=== PATIENT | female | born 1985 | race Caucasian/White ===

== ENCOUNTER 2017-03-25 08:22 | Emergency (ER) | payer SELFPAY ==
[2017-03-25 08:30] VITALS: BP 123/71; PULSE 87; TEMP 98.2; BMI 21.0
[2017-03-25 09:19] LABS: URINE APPEARANCE CLOUDY; URINE BILIRUBIN NEGATIVE (NEGATIVE); URINE BLOOD 3+ (NEGATIVE); URINE COLOR YELLOW; URINE GLUCOSE (UA) NEGATIVE (NEGATIVE); URINE KETONE NEGATIVE (NEGATIVE); URINE NITRITE NEGATIVE (NEGATIVE); URINE UROBILINOGEN NEGATIVE mg/dL (0.2-1.0)
--- NOTE | 2017-03-25 09:19 | PDOC ---
History of Present Illness - General Chief Complaint: Urinary Problem Stated Complaint: PAIN Time Seen by Provider: 03/25/17 08:56 History Source: Patient Exam Limitations: No Limitations - History of Present Illness Travel History: No Initial Comments: 03/25/17 09:19 31 yr female with urinary urgency and pain for 4 days. denies fever or chills no back pain or vomiting. Past History - Past Medical History Allergies/Adverse Reactions: Allergies Allergy/AdvReac Type Severity Reaction Status Date / Time No Known Allergies Allergy Verified 03/25/17 08:25 Home Medications: Ambulatory Orders Nitrofurantoin Monohyd/M-Cryst [Nitrofurantoin [place]-Mcr 100 mg] 100 mg PO BID # 14 capsule 03/25/17 Phenazopyridine HCl [Pyridium] 200 mg PO TID #6 tablet 03/25/17 Other medical history: denies. - Psycho/Social/Smoking Cessation Hx Suicidal Ideation: No Smoking History: Never smoked *Physical Exam - Vital Signs Last Vital Signs Temp Pulse Resp BP Pulse Ox 98.2 F 87 19 123/71 100 03/25/17 08:25 03/25/17 08:25 03/25/17 08:25 03/25/17 08:25 03/25/17 08:25 - Physical Exam General Appearance: Yes: Nourished, Appropriately Dressed HEENT: positive: EOMI, PATEL Neck: positive: Supple Respiratory/Chest: positive: Lungs Clear, Normal Breath Sounds Cardiovascular: positive: Regular Rhythm, Regular Rate Gastrointestinal/Abdominal: positive: Normal Bowel Sounds, Tender (suprapubic ) , Soft Musculoskeletal: positive: Normal Inspection Extremity: positive: Normal Capillary Refill, Normal Inspection, Normal Range of Motion Integumentary: positive: Normal Color, Dry, Warm Neurologic: positive: Fully Oriented, Alert, Normal Mood/Affect, Normal Response , Motor Strength 5/5 Medical Decision Making - Medical Decision Making 03/25/17 10:10 cc: urgency and urinary pain for 4 days was dx with UTI 4 days ago in [place] was given "one dose of antibiotic" pt states she felt better for one day now symptoms have returned neg fever neg chills neg nvd or back pain no CVAT will r/o r/o UTI pt denies vaginal discharge no medical history stable vitals *DC/Admit/Observation/Transfer Diagnosis at time of Disposition: Urinary tract infection Qualifiers: Urinary tract infection type: acute cystitis Hematuria presence: with hematuria Qualified Code(s): N30.01 - Acute cystitis with hematuria - Discharge Dispostion Disposition: HOME Condition at time of disposition: Improved - Prescriptions Prescriptions: Nitrofurantoin Monohyd/M-Cryst [Nitrofurantoin [place]-Mcr 100 mg] 100 mg PO BID # 14 capsule Phenazopyridine HCl [Pyridium] 200 mg PO TID #6 tablet - Referrals Referrals: Luis Eduardo Caraballo MD [Staff Physician] - - Patient Instructions Additional Instructions: drink pleanty of water take the medication as prescribed finish all the antibiotics follow up with the urologist if symptoms do not improve return if any fever, chills, vomiting or severe pain
[2017-03-25] MEDS ORDERED: PHENAZOPYRIDINE HCL 100 MG TABLET (FP) PO ONE (09:20)
[2017-03-25 09:28] LABS: URINE LEUK ESTERASE 3+ (NEGATIVE); URINE PROTEIN 1+ (NEGATIVE)
[2017-03-25 09:52] LABS: URINE MUCUS RARE; URINE RBC 18 /hpf (0-3); URINE WBC 336 /hpf (3-5)
== END 2017-03-25 10:09 | disposition home or self-care (01) ==
LOC: JERFT 08:22
DX: N30.01 Acute cystitis with hematuria (principal)
CPT/HCPCS: 81003; 81015; 84703; 87086; 87186; 99281-25